=== PATIENT | male | born 1950 | race Caucasian/White ===

== ENCOUNTER 2019-04-06 18:34 | Emergency (ER) | payer MEDICARE ==
[~2019-04-06] VITALS: Ht 177.8 cm; Wt 90.9 kg
[2019-04-06 18:42] VITALS: Ht 177.8 cm; Wt 90.9 kg
[2019-04-06] MEDS ORDERED: LISINOPRIL10 MG PO (18:44)
[2019-04-06] MEDS ORDERED: LIPITOR20 MG PO (18:44)
[2019-04-06] MEDS ORDERED: FLOMAX0.4 MG PO (18:44)
[2019-04-06] MEDS ORDERED: KEFLEX500 MG PO (20:05)
[2019-04-06] MEDS ORDERED: HYDROCODON-ACE1 EAC7 PO (20:05)
[2019-04-06 21:08] VITALS: BP 125/71
--- NOTE | 2019-04-10 14:29 | OP ---
PATIENT NAME: JOSIE ARGUETA MEDICAL RECORD: [id number] LOCATION:[facility] ADMISSION DATE: SURGEON: TEJAS RODRIGUEZ MD DATE OF OPERATION: 04/06/2019 This is an Emergency Room procedure. 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 PROCEDURE: Irrigation and debridement of open fracture with reapproximation of near amputation of the left thumb. SURGEON: Tejas Rodriguez MD ANESTHESIA: Local. INDICATIONS: I was called emergently to the emergency room to see this patient on 04/06/2019. Upon evaluation of both the radiographs, the patient did have a transverse complete fracture of the thumb, distal tuft. The wound was in a diagonal shape across the patient's thumb, just getting into the germinal matrix on the radial side. The residual thumb tip had a very large radial based flap resulting in continued blood supply and bleeding with slowed capillary refill; however, the patient did have a good blood supply on the radial pedicle aspect of this thumb. The decision was made to do a digital block. I cleaned the thumb up and then reapproximated with Prolene. OPERATIVE SUMMARY IN DETAIL: After obtaining the appropriate preoperative orthopedic consents and discussing the risks, hazards and benefits with the patient as well as his need for followup care as he is from out of town. The wound was evaluated. There was a very clean cut from what he said was a brand new hatchet. Digital block was put into place and allowed to set up. At this point, a mixture of Betadine and saline were utilized to evaluate the fracture and clean out the entire wound itself. The thumb tip was then reapproximated in the series of 3-0 Prolene sutures were placed both on the palmar aspect as well as into the nail bed itself for good stabilization. I felt like the fracture could then be treated with splinting rather than any sort of internal fixation; however, it may be needed in the future. After thorough cleansing, a thumb spica splint was applied. At this point, the patient was turned back over to the Emergency Room physicians who are going to give him the appropriate tetanus, antibiotics as well as pain medication. I did give him my card in case he needed to call me for any questions or follow up at my clinic. He does reside in [place], [place] and was planning to return to [place], [place] where he will seek orthopedic followup there. TRANSINT:[id number] Voice Confirmation ID: [id number] DOCUMENT ID: [id number] OPERATIVE REPORT [id number] JOSIE ARGUETA MD, TEJAS POLANCO at 1429 CC: [id number] DICTATION DATE: 04/10/19 1143 [employer] DEVELOPER: 04/10/19 1221 DEP ER 04/06/19 [id number] [place] [address]
== END 2019-04-06 21:08 | disposition home or self-care (01) ==
LOC: D.ER 18:34 → EDBD 18:34 → D.ER 21:08
DX: S68.022A Partial traumatic metacarpophalangeal amputation of left thumb, initial encounter (principal); W45.8XXA Other foreign body or object entering through skin, initial encounter; I10 Essential (primary) hypertension